=== PATIENT | male | born 1955 | race Caucasian/White ===

== ENCOUNTER → 2017-03-31 | Outpatient (CLI) | payer OTHER ==
[~2017-03-31] MED LIST: ASPI81EC PO; Amlodipine-Ben1 EACH PO; DIAZ5 PO; FINA5; Gabapentin600 MG PO; OMEP20ER PO; OXYC1TAB11; PROM25 PO; TOPI15C; VALS80; ZOLP10 PO; Zofran Odt4 MG SL; Zolpidem Tartra10 MG PO
[2017-03-31 13:00] LABS: Bilirubin, Urine Neg (Neg); Blood, Urine Neg (Neg); Glucose Qualitative, Urine Neg (Neg); Ketones, Urine Neg (Neg); Leukocyte Esterase, Urine Neg (Neg); Nitrite, Urine Neg (Neg); Protein, Urine Neg (Neg); Specific Gravity, Urine 1.025 (1.003-1.022); Urobilinogen, Urine NORM (Normal)
[2017-03-31 13:13] LABS: Appearance, Urine Clear (Clear); Color, Urine Yellow (P-Yellow)
== END ==
LOC: LAB 12:52
PROVIDERS: Nurse Practitioner Family
DX: N39.43 Post-void dribbling (principal); R35.0 Frequency of micturition
CPT/HCPCS: 81003

== ENCOUNTER 2017-06-06 13:50 | Day surgery (SDC) | payer OTHER ==
[~2017-06-06] VITALS: Ht 190.5 cm; Wt 97.2 kg
[~2017-06-06 13:50] MED LIST changes: -TOPI15C
[2017-06-06] MEDS ORDERED: TOPI15C (14:28)
== END 2017-06-06 15:41 | disposition home or self-care (01) ==
LOC: ORSCSDS 13:50
PROVIDERS: Surgery
PROC: 0DJD8ZZ Inspection of Lower Intestinal Tract, Via Natural or Artificial Opening Endoscopic (ICD-10-PCS; principal; 2017-06-06 14:45)
DX: Z12.11 Encounter for screening for malignant neoplasm of colon (principal); Z86.010 Personal history of colon polyps; I10 Essential (primary) hypertension; Z79.899 Other long term (current) drug therapy
CPT/HCPCS: J7120

== ENCOUNTER 2018-07-13 12:20 | Day surgery (SDC) | payer OTHER ==
[~2018-07-13 12:20] MED LIST changes: +ASCO500 PO; +ASPI81CH PO; +CHOL10002 PO; +COQ1050 MG PO; +FINA5 PO; +FOLI400 PO; +IBUP800 PO; +LOSA50 PO; +OMEGA 3-6-9 11200 MG PO; +OMEPRAZOLE20 MG PO; +SILD25T PO; +TAMS.4ER PO; +TOPI15C; +TURMERIC 500 M1 EACH PO
--- NOTE | 2018-07-13 14:07 | NUR ---
07/13/18 1407 Ernesto Perez PATIENT DETERMINED TO BE ASA APPROPRIATE FOR PROPOFOL SEDATION PRIOR TO START OF PROCEDURE BY . 3-LEAD EKG REVIEWED WITH PHYSICIAN PRIOR TO START OF PROCEDURE.PATIENT CONFIRMS NPO STATUS AND AGREES WITH SCHEDULED PROCEDURE.History, Chart, Medications and Allergies reviewed before start of procedure.MONITOR INTACT WITH CONTINUOUS PULSE OXIMETRY AND INTERMITTENT BP.MONITOR INTACT WITH CONTINUOUS PULSE OXIMETRY AND INTERMITTENT BP.O2 VIA N/C INTACT THROUGHOUT SEDATION/PROCEDURE.Bite Block Placed
--- NOTE | 2018-07-13 14:46 | NUR ---
ASSUMED CARE OF P. DENIES NAUSEA OR PAIN. TOLERATING COFFEE.
--- NOTE | 2018-07-13 14:54 | NUR ---
WRITTEN AND VERBAL D/C INSTRUCTIONS GIVEN TO PT WITH STATED UNDERSTANDING.
== END 2018-07-13 22:45 | disposition home or self-care (01) ==
LOC: ORSCMMR 12:20 → ORD 13:45 → ORSCMMR 22:45
PROVIDERS: Internal Medicine Gastroenterology
PROC: 0D758ZZ Dilation of Esophagus, Via Natural or Artificial Opening Endoscopic (ICD-10-PCS; principal; 2018-07-13 13:45)
PROC: 0DB68ZX Excision of Stomach, Via Natural or Artificial Opening Endoscopic, Diagnostic (ICD-10-PCS; principal; 2018-07-13 13:45)
PROC: 0DB58ZX Excision of Esophagus, Via Natural or Artificial Opening Endoscopic, Diagnostic (ICD-10-PCS; principal; 2018-07-13 13:45)
DX: R13.10 Dysphagia, unspecified (principal); K29.70 Gastritis, unspecified, without bleeding; I10 Essential (primary) hypertension; K21.9 Gastro-esophageal reflux disease without esophagitis; Z87.891 Personal history of nicotine dependence; Z79.82 Long term (current) use of aspirin; Z79.899 Other long term (current) drug therapy
CPT/HCPCS: 88305; 88342; J2704; J7120

== ENCOUNTER 2018-09-12 23:31 | Emergency (ER) | payer OTHER ==
[~2018-09-12] VITALS: Ht 190.5 cm; Wt 99.8 kg
[2018-09-13 00:03] LABS: Source, Urine Clean Catch
[2018-09-13 00:05] LABS: BASOPHILS ABSOLUTE AUTO 0.04 K/mm3 (0.00-0.23); BASOPHILS PERCENT AUTO 0 % (0-2); EOSINOPHILS ABSOLUTE AUTO 0.05 K/mm3 (0.00-0.68); EOSINOPHILS PERCENT AUTO 1 % (0-6); Hematocrit 40.8 % (37.0-53.0); Hemoglobin 13.6 g/dL (13.5-17.5); IMMATURE GRAN ABSOLUTE AUTO 0.02 K/mm3 (0.00-0.10); IMMATURE GRAN PERCENT AUTO 0 % (0-1); LYMPHOCYTES ABSOLUTE AUTO 1.05 K/mm3 (0.84-5.20); LYMPHOCYTES PERCENT AUTO 10 % (21-46); MONOCYTES ABSOLUTE AUTO 1.04 K/mm3 (0.16-1.47); MONOCYTES PERCENT AUTO 10 % (4-13); Mean Corpuscular HGB 30.6 pg (26.0-34.0); Mean Corpuscular HGB Conc 33.3 g/dL (31.5-36.5); Mean Corpuscular Volume 92 fL (80-100); Mean Platelet Volume 10.6 fL (9.1-12.4); NEUTROPHILS ABSOLUTE AUTO 8.79 K/mm3 (1.96-9.15); NEUTROPHILS PERCENT AUTO 80 % (41-73); Platelet Count 220 K/mm3 (150-400); RDW Coefficient Variation 13.7 % (11.7-14.2); RDW Standard Deviation 46.4 fL (35.1-46.3); Red Blood Cell Count 4.45 M/mm3 (4.30-5.90); White Blood Cell Count 10.99 K/mm3 (4.00-11.30)
[2018-09-13 00:06] LABS: Appearance, Urine Cloudy (Clear); Bilirubin, Urine Neg (Neg); Blood, Urine 5+ (Neg); Color, Urine Brown (P-Yellow); Glucose Qualitative, Urine Neg (Neg); Ketones, Urine 2+ (Neg); Leukocyte Esterase, Urine 1+ (Neg); Nitrite, Urine Neg (Neg); Protein, Urine 3+ (Neg); Specific Gravity, Urine 1.025 (1.003-1.022); Urobilinogen, Urine NORM (Normal)
[2018-09-13 00:12] LABS: Amorphous Light ({null, 0-Heavy}); Bacteria Mod /hpf; Red Blood Cells, Urine TNTC /hpf (0-2); Squamous Epithelial Cells Few /hpf (Few)
[2018-09-13 00:22] LABS: Albumin, Blood 3.8 g/dL (3.4-5.0); Albumin/Globulin Ratio 1.1 (0.8-1.8); Bilirubin, Total 0.6 mg/dL (0.1-1.0); Bun/Creatinine Ratio 15.9 (12.0-20.0); Calcium, Blood 8.8 mg/dL (8.5-10.1); Creatinine, Blood 1.45 mg/dL (0.60-1.20); Globulin, Blood 3.6 g/dL (2.2-4.0); Potassium, Blood 4.2 mmol/L (3.5-5.5); Total Protein, Blood 7.4 g/dL (6.4-8.2)
[2018-09-13] MEDS ORDERED: ONDA4ODT MM (02:28)
[2018-09-13] MEDS ORDERED: Roxicodone5 MG PO (02:28)
[2018-09-13] MEDS ORDERED: CEPH500 PO (02:28)
[2018-09-13] MEDS ORDERED: Flomax0.4 MG PO (02:28)
== END 2018-09-13 02:42 | disposition home or self-care (01) ==
LOC: ER 23:31
PROVIDERS: Physician Assistant
DX: N13.2 Hydronephrosis with renal and ureteral calculous obstruction (principal); I10 Essential (primary) hypertension; N40.0 Benign prostatic hyperplasia without lower urinary tract symptoms; Z79.899 Other long term (current) drug therapy
CPT/HCPCS: 36415; 74176; 80053; 81001; 83690; 85025; 87086; 96361; 96374; 96375; 99284-25; A9270; A9270-GY; J1170; J1885; J2405; J7120

== ENCOUNTER → 2022-12-07 | Outpatient (CLI) | payer OTHER ==
[~2022-12-07] MED LIST changes: +CEPH500 PO; +Flomax0.4 MG PO; +ONDA4ODT MM; +Roxicodone5 MG PO
== END | disposition home or self-care (01) ==
LOC: LAB SHORT 08:45 → PLD 08:45
DX: D48.5 Neoplasm of uncertain behavior of skin (principal)
CPT/HCPCS: 88305